=== PATIENT | male | born 1935 | race Caucasian/White ===

== ENCOUNTER → 2019-10-27 | Outpatient (REF) ==
--- NOTE | 2019-10-27 20:49 | REP ---
LIMITED SKULL: AP view of the skull is performed. The cranium is for the most part absent. There is absence of the cranium above the level of the superior orbital rims. Multiple fracture fragments are seen along the remaining cranial margins. Scattered tiny metallic fragments are seen centrally along the remaining portion of the cranium. A second image shows multiple tiny metallic fragments in the tissue radiograph. Electronically Signed by Wei Cr MD 10/28/2019 03:52 P
== END ==
LOC: M LAB 08:05